=== PATIENT | male | born 1965 | race Caucasian/White ===

== ENCOUNTER 2021-12-15 01:38 | Outpatient (CLI) | payer BC, SELFPAY ==
[2021-12-15 11:36] LABS: ALT 244 U/L (16-63); AST 413 U/L (15-37); Albumin 1.5 g/dL (3.4-5.0); Alkaline Phosphatase 693 U/L (46-116); Anion Gap 13.5 mmol/L (3-11); BUN 21 mg/dL (7-18); CO2 22.5 mmol/L (21.0-32.0); CREATININE 1.4 mg/dL (0.70-1.30); Calcium 9.4 mg/dL (8.5-10.1); Chloride 95 mmol/L (98-107); Estimated GFR 52.81 (mL/min/1.73m2); Folate 14.1 ng/mL (8.6-20.0); Glucose 213 mg/dL (74-106); Potassium 5.1 mmol/L (3.5-5.1); Sodium 131 mmol/L (136-145); Total Protein 6.6 g/dL (6.4-8.2)
[2021-12-15 11:41] LABS: Vitamin D 25 Total 59.7 ng/mL (30-100)
[2021-12-15 12:30] LABS: Bilirubin, Total 25.1 mg/dL (0.2-1.0); Vitamin B12 > 2000 pg/mL (193-986)
[2021-12-15 23:07] LABS: CEA 49.6 ng/mL (See Note)
[2021-12-16 16:13] LABS: G6PD Enzyme Activity 14.2 U/g Hb (8.0 - 11.9)
[2021-12-17 12:36] LABS: Free Retinol (Vitamin A) 5.5 mcg/dL (32.5-78.0)
[2021-12-18 14:27] LABS: Pyridoxal 5-Phosphate (PLP), P 9 mcg/L (5-50)
== END 2021-12-15 01:39 | disposition home or self-care (01) ==
LOC: LBO 01:38
PROVIDERS: PCP Nurse Practitioner; Visit Provider Naturopath
DX: C18.9 Malignant neoplasm of colon, unspecified (principal); G62.9 Polyneuropathy, unspecified; R74.8 Abnormal levels of other serum enzymes; E55.9 Vitamin D deficiency, unspecified
CPT/HCPCS: 36415; 80053; 82306; 82955; 82378; 82607; 82746; 84207; 84590